=== PATIENT | female | born 1985 | race Caucasian/White ===

== ENCOUNTER 2020-08-17 06:43 | Emergency (ER) | payer MEDICAID ==
[~2020-08-17] VITALS: Ht 154.9 cm; Wt 107.0 kg
[2020-08-17 06:50] VITALS: BP 134/83
--- NOTE | 2020-08-17 06:58 | NUR ---
PT AMBULATED WITH STEADY GAIT TO RESTROOM TO PROVIDE UA SAMPLE.
--- NOTE | 2020-08-17 07:00 | NUR ---
PT STATES UNABLE TO PROVIDE UA AT THIS TIME. PT AMBULA JENNY TO BED 6 WITH STEADY GAIT.
--- NOTE | 2020-08-17 07:03 | NUR ---
ERMD EVALUATING PT AT BEDSIDE.
--- NOTE | 2020-08-17 07:21 | NUR ---
35YO F C/O CONTINUOUS VAGINAL BLEEDING WITH CLOTS X 3 WEEKS. DENIES ABDOMINAL AND BACK PAIN. DENIES DYSURIA. DENIES ANY INJURY OR TRAUMA. IN ER, VSS. 0 PAIN AT THIS TIME. ABDOMEN SOFT, NONTENDER. PT RESTING COMFORTABLY IN BED WITH 1 SIDERAIL UP. MECHED SAW PT AT BEDSIDE. PMH: DM, HTN, HYPERCHOLESTEROL UNCOMPLIANT WITH ALL MEDS NKA
[2020-08-17 07:28] LABS: BASOPHILS # (AUTO) 0.1 K/uL (0.00-0.22); BASOPHILS % (AUTO) 1.1 % (0.0-2.0); EOSINOPHILS # (AUTO) 0.3 K/uL (0-0.4); EOSINOPHILS % (AUTO) 3.2 % (0.0-4.0); HEMATOCRIT 31.9 % (36-48); LYMPHOCYTES # (AUTO) 2.8 K/uL (2.5-16.5); LYMPHOCYTES % (AUTO) 30.9 % (20.5-51.1); MEAN CORPUSCULAR HEMOGLOBIN 32 pg (27-31); MEAN CORPUSCULAR HGB CONC 35 g/dL (33-37); MEAN CORPUSCULAR VOLUME 91.6 fL (80-94); MONOCYTES # (AUTO) 0.6 K/uL (0.8-1.0); MONOCYTES % (AUTO) 6.2 % (1.7-9.3); NEUTROPHILS # (AUTO) 5.4 K/uL (1.8-7.7); NEUTROPHILS % (AUTO) 58.6 % (42.2-75.2); PLATELET COUNT (AUTO) 251 K/uL (140-450); RED BLOOD CELL COUNT(AUTO) 3.48 MIL/uL (4.20-5.40); WHITE BLOOD COUNT (AUTO) 9.2 K/uL (4.8-10.8)
[2020-08-17 07:41] LABS: ANION GAP 15.6 (8-16); CARBON DIOXIDE 23.3 mmol/L (21-32); CREATININE 0.7 mg/dL (0.6-1.3); POTASSIUM 3.9 mmol/L (3.5-5.1)
[2020-08-17 07:43] LABS: PROTHROMBIN TIME 9.8 secs (10.8-13.4)
[2020-08-17] MEDS ORDERED: KETOROLAC 30 MG/ML VIAL IM ONE (08:20)
--- NOTE | 2020-08-17 08:35 | NUR ---
MD PERFORMING PELVIC EXAM AT BEDSIDE
[2020-08-17 08:56] VITALS: BP 134/83
== END 2020-08-17 08:56 | disposition home or self-care (01) ==
LOC: MED 06:43
DX: N93.8 Other specified abnormal uterine and vaginal bleeding (principal); D64.9 Anemia, unspecified; E11.65 Type 2 diabetes mellitus with hyperglycemia; I10 Essential (primary) hypertension
CPT/HCPCS: 36415; 76830; 80048; 81002; 81025; 85025; 85610; 96372; 99284; J1885

== ENCOUNTER 2021-07-17 14:53 | Emergency (ER) | payer MEDICAID ==
[~2021-07-17] VITALS: Ht 152.4 cm; Wt 98.0 kg
[2021-07-17 15:02] VITALS: BP 155/104
--- NOTE | 2021-07-17 15:10 | NUR ---
35 y/o F BIB spouse c/o L ear pain and associated hearing loss x 3 days. Patient A&Ox4, ambulatory who states 8/10, sharp/constant, non-radiating pain to Left ear. Patient reports hearing loss is normal for her. Denies nausea, vomiting, diarrhea, chest pain, SOB, fever, chills, blurry vision. Pt reports taking prescribed amoxicillin. Bed locked in lowest position, side rails x 1, call light in reach. PMH: memorrhagia, HTN, HLD, DM2 NKA Meds: Amoxicillin (2 days ago).
--- NOTE | 2021-07-17 15:10 | NUR ---
VIRAL Hart is evalutaing patient at bedside
[2021-07-17] MEDS ORDERED: NAPR-54 PO (15:18)
[2021-07-17] MEDS ORDERED: CIPR500T4 PO (15:18)
[2021-07-17] MEDS ORDERED: OFLO10SO16 RIGHT EAR (15:18)
[2021-07-17] MEDS ORDERED: OFLO10SO16 LEFT EAR (15:24)
[2021-07-17] MEDS: KETOROLAC 30 MG/ML VIAL IM ONE (15:27)
--- NOTE | 2021-07-17 15:50 | NUR ---
Patient discharged with v/s stable. Written and verbal after care instructions given and explained. Patient alert, oriented and verbalized understanding of instructions. Ambulatory with steady gait. All questions addressed prior to discharge. ID band removed. Patient advised to follow up with PMD. Rx of Cipro, Naprosyn, Ofloxacin given. Patient educated on indication of medication including possible reaction and side effects. Opportunity to ask questions provided and answered.
== END 2021-07-17 15:50 | disposition home or self-care (01) ==
LOC: MED 14:53
DX: H60.92 Unspecified otitis externa, left ear (principal); E11.9 Type 2 diabetes mellitus without complications; I10 Essential (primary) hypertension; Z79.899 Other long term (current) drug therapy
CPT/HCPCS: 96372; 99283; J1885